=== PATIENT | female | born 1950 | race Caucasian/White ===

== ENCOUNTER 2021-04-03 20:48 | Emergency (ER) | payer MEDICARE, OTHER ==
[2021-04-03] MEDS ORDERED: Sodium Chloride 0.9% 10 ML Syringe FLUSH PRN (20:51)
--- NOTE | 2021-04-03 21:24 | CR ---
Chest: Frontal view of the chest was obtained. Comparison: No prior chest imaging is available. Heart is mildly enlarged. Tortuous thoracic aorta is seen. Lungs are clear with no acute parenchymal change. Slight degenerative change is scattered within the spine with mild scoliosis. Impression: 1. Findings as noted above. 2. Nothing acute is seen. Diagnostic code #2
--- NOTE | 2021-04-03 21:34 | CT ---
Head CT Technique: Multiple axial sections through the brain were obtained. Intravenous contrast was not utilized. Reconstructed coronal and sagittal images were obtained. Comparison: No prior intracranial imaging is available. Findings: Ventricles along with basal cisterns and sulci over the convexities are mildly prominent. No abnormal parenchymal densities are seen. No evidence of intracranial hemorrhage is seen. No midline shift or mass-effect is seen. Slight diminished density is noted within the area of the basilio most likely representing artifact from the underlying bony structures. Bone window settings were reviewed which show nothing acute within the visualized paranasal sinuses and mastoid sinuses. Atherosclerotic calcification is seen within the vertebral and carotid siphon. No acute calvarial abnormality is appreciated. Impression: 1. Mild senescent change as noted above. 2. Nothing acute is appreciated on noncontrast head CT exam. Diagnostic code #2
--- NOTE | 2021-04-03 22:47 | EDM.PDOC ---
ED HPI GENERAL MEDICAL PROBLEM - General Chief Complaint: Neuro Symptoms/Deficits Stated Complaint: POSSIBLE STROKE ALERT Time Seen by Provider: 04/03/21 20:50 Source of Information: Reports: Patient, Family History Limitations: Reports: No Limitations - History of Present Illness INITIAL COMMENTS - FREE TEXT/NARRATIVE: The patient presents with a headache and shortness of breath. She was upstairs changing her shirt when she developed pressure in her neck and pain to the back of her head. This has happened before and she saw her doctor Dr Rhodes and she did a complete work up. She gets results tomorrow. The patient also has had some shortness of breath recently. She has a history of atrial fibrillation and she is on eliquis. She has no swelling or pain in her legs. She has no fever, chills, cough, chest pain, abdominal pain, nausea, vomiting, numbness or weakness. Onset: Gradual Duration: Minutes: Location: Reports: Head Quality: Reports: Ache Severity: Moderate Improves with: Reports: None Worsens with: Reports: None Associated Symptoms: Reports: Headaches, Shortness of Breath. Denies: Chest Pain, Cough, Fever/Chills, Nausea/Vomiting Head Pain Score (Numeric/FACES): 3 - Related Data Allergies Allergy/AdvReac Type Severity Reaction Status Date / Time No Known Allergies Allergy Verified 04/03/21 20:58 Past Medical History Cardiovascular History: Reports: Afib, Hypertension, [place], SOB on Exertion - Past Surgical History Cardiovascular Surgical History: Reports: Coronary Artery Stent Social & Family History - Tobacco Use Tobacco Use Status *Q: Never Tobacco User ED ROS GENERAL - Review of Systems Review Of Systems: See Below Constitutional: Reports: No Symptoms HEENT: Reports: No Symptoms Respiratory: Reports: Shortness of Breath Cardiovascular: Reports: No Symptoms Endocrine: Reports: No Symptoms GI/Abdominal: Reports: No Symptoms : Reports: No Symptoms Musculoskeletal: Reports: No Symptoms Neurological: Reports: Headache ED EXAM, NEURO - Physical Exam Exam: See Below Exam Limited By: No Limitations General Appearance: Alert, No Apparent Distress Ears: Normal External Exam Nose: Normal Inspection Head Exam: Atraumatic, Normocephalic Neck: Normal Inspection, Other (Small mass to the left neck) Respiratory/Chest: No Respiratory Distress, Lungs Clear, Normal Breath Sounds Cardiovascular: Regular Rate, Rhythm, No Edema, No Murmur GI/Abdominal: Soft, Non-Tender, No Organomegaly, No Mass Neurological: Alert, No Motor/Sensory Deficits, Oriented x 3 #1 Interpretation EKG Date: 04/03/21 Time: 20:54 Rhythm: A-Fib Rate (Beats/Min): 117 Gordon: LAD-Left Gordon Deviation P-Wave: Absent QRS: RBBB ST-T: Normal QT: Normal Course - Vital Signs Last Recorded V/S: Last Vital Signs Temp 98.2 F 04/03/21 20:52 Pulse 111 H 04/03/21 20:52 Resp 18 04/03/21 20:52 BP 150/102 H 04/03/21 20:52 Pulse Ox 95 04/03/21 20:52 - Orders/Labs/Meds Orders: Active Orders 24 hr Category Date Time Status Cardiac Monitoring [RC] . DIRECTED Care 04/03/21 20:51 Active EKG Documentation Completion [RC] STAT Care 04/03/21 20:52 Active Peripheral IV Care [RC] . DIRECTED Care 04/03/21 20:52 Active Sodium Chloride 0.9% [Saline Flush] Med 04/03/21 20:51 Active 10 ml FLUSH ASDIRECTED PRN Peripheral IV Insertion Adult [OM.PC] Stat Oth 04/03/21 20:51 Ordered Medication Orders Sodium Chloride (Sodium Chloride 0.9% 10 Ml Syringe) 10 ml FLUSH ASDIRECTED PRN PRN Reason: Keep Vein Open Last Admin: 04/03/21 20:55 Dose: 10 ml Documented by: SANDRA Labs: Laboratory Tests 04/03/21 04/03/21 04/03/21 Range/Units 20:52 20:52 20:52 WBC 10.38 H (3.98-10.04) K/mm3 RBC 4.25 (3.98-5.22) M/mm3 Hgb 12.8 (11.2-15.7) gm/dl Hct 39.2 (34.1-44.9) % MCV 92.2 (79.4-94.8) fl MCH 30.1 (25.6-32.2) pg MCHC 32.7 (32.2-35.5) g/dl RDW Std Deviation 44.4 (36.4-46.3) fL Plt Count 279 (182-369) K/mm3 MPV 10.4 (9.4-12.3) fl Neut % (Auto) 53.5 (34.0-71.1) % Lymph % (Auto) 34.2 (19.3-51.7) % Kin[place] % (Auto) 8.9 (4.7-12.5) % Eos % (Auto) 2.7 (0.7-5.8) Baso % (Auto) 0.5 (0.1-1.2) % Neut # (Auto) 5.56 (1.56-6.13) K/mm3 Lymph # (Auto) 3.55 (1.18-3.74) K/mm3 [place] # (Auto) 0.92 H (0.24-0.36) K/mm3 Eos # (Auto) 0.28 (0.04-0.36) K/mm3 Baso # (Auto) 0.05 (0.01-0.08) K/mm3 Manual Slide Review Normal smear D-Dimer, Quantitative 1.57 H (0.19-0.50) mg/L Sodium 135 L (136-145) mEq/L Potassium 4.0 (3.5-5.1) mEq/L Chloride 99 (98-107) mEq/L Carbon Dioxide 26 (21-32) mEq/L Anion Gap 14.0 (5-15) BUN 22 H (7-18) mg/dL Creatinine 1.3 H (0.55-1.02) mg/dL Est Cr Clr Drug Dosing 28.92 mL/min Estimated GFR (MDRD) 40 (>60) mL/min BUN/Creatinine Ratio 16.9 (14-18) Glucose 110 H (70-99) mg/dL POC Glucose (70-99) mg/dL Calcium 8.9 (8.5-10.1) mg/dL Total Bilirubin 0.5 (0.2-1.0) mg/dL AST 26 (15-37) U/L ALT 25 (14-59) U/L Alkaline Phosphatase 60 (46-116) U/L Troponin I < 0.017 (0.00-0.056) ng/mL NT-Pro-B Natriuret Pep (0-125) pg/mL Total Protein 7.4 (6.4-8.2) g/dl Albumin 3.7 (3.4-5.0) g/dl Globulin 3.7 gm/dL Albumin/Globulin Ratio 1.0 (1-2) 04/03/21 04/03/21 Range/Units 20:52 20:54 WBC (3.98-10.04) K/mm3 RBC (3.98-5.22) M/mm3 Hgb (11.2-15.7) gm/dl Hct (34.1-44.9) % MCV (79.4-94.8) fl MCH (25.6-32.2) pg MCHC (32.2-35.5) g/dl RDW Std Deviation (36.4-46.3) fL Plt Count (182-369) K/mm3 MPV (9.4-12.3) fl Neut % (Auto) (34.0-71.1) % Lymph % (Auto) (19.3-51.7) % Kin[place] % (Auto) (4.7-12.5) % Eos % (Auto) (0.7-5.8) Baso % (Auto) (0.1-1.2) % Neut # (Auto) (1.56-6.13) K/mm3 Lymph # (Auto) (1.18-3.74) K/mm3 [place] # (Auto) (0.24-0.36) K/mm3 Eos # (Auto) (0.04-0.36) K/mm3 Baso # (Auto) (0.01-0.08) K/mm3 Manual Slide Review D-Dimer, Quantitative (0.19-0.50) mg/L Sodium (136-145) mEq/L Potassium (3.5-5.1) mEq/L Chloride (98-107) mEq/L Carbon Dioxide (21-32) mEq/L Anion Gap (5-15) BUN (7-18) mg/dL Creatinine (0.55-1.02) mg/dL Est Cr Clr Drug Dosing mL/min Estimated GFR (MDRD) (>60) mL/min BUN/Creatinine Ratio (14-18) Glucose (70-99) mg/dL POC Glucose 113 H (70-99) mg/dL Calcium (8.5-10.1) mg/dL Total Bilirubin (0.2-1.0) mg/dL AST (15-37) U/L ALT (14-59) U/L Alkaline Phosphatase (46-116) U/L Troponin I (0.00-0.056) ng/mL NT-Pro-B Natriuret Pep 2775 H (0-125) pg/mL Total Protein (6.4-8.2) g/dl Albumin (3.4-5.0) g/dl Globulin gm/dL Albumin/Globulin Ratio (1-2) Meds: Medications Generic Name Dose Route Start Last Admin Trade Name Freq PRN Reason Stop Dose Admin Sodium Chloride 10 ml 04/03/21 20:51 04/03/21 20:55 Sodium Chloride 0.9% 10 Ml Syringe FLUSH 10 ml ASDIRECTED PRN Administration Keep Vein Open - Re-Assessments/Exams Free Text/Narrative Re-Assessment/Exam: 04/03/21 22:48 A stroke alert was called. I came into the room right away. The patient had no weakness. Her last time known well was 15 minutes before arrival. I ordered an IV saline lock, EKG, CXR, CT of her head and labs. Her EKG shows atrial fib rillation with RBBB and nothing acute. Her CXR shows nothing acute is seen. The CT of her head shows mild senescent change. Nothing acute is appreciated on noncontrast head CT exam. Her WBC was slightly elevated at 10.38. Her D-dimer was elevated at 1.57. Her Na was elevated at 135. Her creatinine is elevated at 1.3. Her glucose is 110. Her troponin is negative. Her BNP is elevated at 2775. She has no swelling in her legs. She is on eliquis. I do not think she has a PE. I do not think a PE study is needed at this time. She has a follow up appointment with Dr Rhodes in the morning. I will discharge her home. She does feel better. Departure - Departure Time of Disposition: 22:55 Disposition: Home, Self-Care 01 Condition: Good Clinical Impression: Shortness of breath Headache Qualifiers: Headache type: other headache syndrome Qualified Code(s): G44.89 - Other headache syndrome - Discharge Information *PRESCRIPTION DRUG MONITORING PROGRAM REVIEWED*: Not Applicable *COPY OF PRESCRIPTION DRUG MONITORING REPORT IN PATIENT AURELIANO: Not Applicable Referrals: Elicia Rhodes MD [Primary Care Provider] - 1 Day Additional Instructions: Take your medications as prescribed. Follow up with Dr Rhodes tomorrow. Please return if you are worse. Sepsis Event Note (ED) - Evaluation Sepsis Screening Result: No Definite Risk - Focused Exam Vital Signs: Vital Signs Temp Pulse Resp BP Pulse Ox 04/03/21 20:52 98.2 F 111 H 18 150/102 H 95 - My Orders Last 24 Hours: My Active Orders 04/03/21 20:51 Cardiac Monitoring [RC] . DIRECTED Sodium Chloride 0.9% [Saline Flush] 10 ml FLUSH ASDIRECTED PRN Peripheral IV Insertion Adult [OM.PC] Stat 04/03/21 20:52 EKG Documentation Completion [RC] STAT Peripheral IV Care [RC] . DIRECTED - Assessment/Plan Last 24 Hours: My Active Orders 04/03/21 20:51 Cardiac Monitoring [RC] . DIRECTED Sodium Chloride 0.9% [Saline Flush] 10 ml FLUSH ASDIRECTED PRN Peripheral IV Insertion Adult [OM.PC] Stat 04/03/21 20:52 EKG Documentation Completion [RC] STAT Peripheral IV Care [RC] . DIRECTED
== END 2021-04-03 23:00 | disposition home or self-care (01) ==
LOC: JD.ED 20:48
DX: G44.89 Other headache syndrome (principal); R06.02 Shortness of breath; I48.91 Unspecified atrial fibrillation; I10 Essential (primary) hypertension; I25.2 Old myocardial infarction; Z95.5 Presence of coronary angioplasty implant and graft
CPT/HCPCS: 36415; 70450; 70450-26; 71045; 71045-26; 80053; 82947; 83880; 84484; 85025; 85379; 93005; 99285-25

== ENCOUNTER 2021-06-25 21:07 | Emergency (ER) | payer MEDICARE, OTHER ==
[2021-06-25] MEDS ORDERED: Sodium Chloride 0.9% 10 ML Syringe FLUSH PRN (21:25)
[2021-06-25] MEDS ORDERED: Ondansetron 4 MG/2 ML SDV IVPUSH ONE (21:25)
[2021-06-25] MEDS ORDERED: Sodium Chloride 0.9% 1,000 ML IV SCH (21:30)
[2021-06-25] MEDS ORDERED: Alum Hydrox/Mag Hydrox/Simeth 30 ML, Lidocaine 2% 15 ML PO ONE ×2 (21:36)
--- NOTE | 2021-06-25 21:42 | EDM.PDOC ---
<Zenobia Barkley V - Last Filed: 06/25/21 22:56> ED HPI GENERAL MEDICAL PROBLEM - General Chief Complaint: Abdominal Pain Stated Complaint: [facility] Time Seen by Provider: 06/25/21 21:25 Source of Information: Reports: Patient, Family (daughters), RN Notes Reviewed History Limitations: Reports: No Limitations - History of Present Illness INITIAL COMMENTS - FREE TEXT/NARRATIVE: Patient is a 70-year-old female who presents to the ER by [facility], for the evaluation of feeling generally unwell. Patient notes that she has a history of spastic colitis. States that for the last 2 weeks she has been having some GI issues, but today it became pretty painful. States that she is still able to have bowel movements, and has had no diarrhea, or any sort of urinary discomfort. She feels generally bloated, with lots of pressure in her midline abdomen. She is complaining of some burning in her epigastrium. She does have a history of GERD as well. Also has a history of A. fib. States that she tries to take a deep breath in, and just cannot catch a deep breath. Patient's not had any fevers or chills, cough, or any sort of nausea or vomiting. Primary care provider is Dr. Rhodes. Treatments EMBEDDED SOFTWARE TEST ENGINEER: Reports: Other (see below) Other Treatments EMBEDDED SOFTWARE TEST ENGINEER: iv per ambulance Upper Abdomen Pain Score (Numeric/FACES): 8 - Related Data Allergies Allergy/AdvReac Type Severity Reaction Status Date / Time No Known Allergies Allergy Verified 04/03/21 20:58 Home Meds: Home Meds Hydrocodone/Acetaminophen [HYDROcodone-Acetaminophen 5-325 MG] 1 each PO QID PRN #10 tab 06/26/21 [Rx] Ondansetron [Zofran ODT] 4 mg PO Q6H PRN #10 tab.dis 06/26/21 [Rx] Past Medical History Cardiovascular History: Reports: Afib, Hypertension, MS, SOB on Exertion, Stents (2 in LAD) Gastrointestinal History: Reports: Other (See Below) (states hx/ of spastic colitis) - Past Surgical History Cardiovascular Surgical History: Reports: Coronary Artery Stent (x 2 in LAD) Social & Family History - Tobacco Use Tobacco Use Status *Q: Former Tobacco User Used Tobacco, but Quit: Yes Month/Year Tobacco Last Used: 6 yrs - Recreational Drug Use Recreational Drug Use: No ED ROS GENERAL - Review of Systems Review Of Systems: Comprehensive ROS is negative, except as noted in HPI. ED EXAM, GI/ABD - Physical Exam Exam: See Below Exam Limited By: No Limitations General Appearance: Alert, WD/WN, No Apparent Distress Eyes: Bilateral: Normal Appearance Respiratory/Chest: No Respiratory Distress, Lungs Clear, Normal Breath Sounds, No Accessory Muscle Use, Chest Non-Tender Cardiovascular: Normal Peripheral Pulses, Regular Rate, Rhythm, No Edema GI/Abdominal Exam: Normal Bowel Sounds, Soft, No Distention, No Mass, Tender (over epigastrium mainly) Extremities: Normal Inspection, Normal Capillary Refill Neurological: Alert, Oriented, Normal Cognition, No Motor/Sensory Deficits Psychiatric: Normal Affect, Normal Mood Skin Exam: Warm, Dry, Intact, Normal Color, No Rash #1 Interpretation EKG Date: 06/25/21 Time: 21:41 Rhythm: A-Fib Rate (Beats/Min): 108 P-Wave: Present QRS: LBBB ST-T: Normal QT: Normal Comparison: NA - No Prior EKG EKG Interpretation Comments: No obvious ischemia or acute ST changes noted, reviewed by myself and Dr. Scott. Course - Re-Assessments/Exams Free Text/Narrative Re-Assessment/Exam: 06/25/21 21:41 Patient presents to the ER for the evaluation of her abdominal discomfort. We will go ahead and get a EKG due to her history of A. fib, we will get basic labs, also CT of her abdomen pelvis with IV contrast only, and give her a GI cocktail and some Zofran for ongoing management. 06/25/21 22:56 The patient's CBC has resulted, along with her coagulation studies and everything is fairly unremarkable for the most part. Metabolic panel still pending, along with the patient CT. She did get some relief from the GI cocktail, will order 40 of Protonix to see if this helps further help her reflux/burning sensation in her stomach. I did discuss the case with Dr. Scott, as it is nearing the end of my shift and he will gladly take over care of this patient at this time. Departure - Departure Disposition: Home, Self-Care 01 Clinical Impression: Cholecystitis - Discharge Information Instructions: Gallbladder Eating Plan, Cholecystitis, [id number] Referrals: Elicia Rhodes MD [Primary Care Provider] - Forms: ED Department Discharge Additional Instructions: Low-fat diet return to ER if increased pain, vomiting or fever. Follow-up with PCP for recheck and possible surgical referral. <Sasha Scott - Last Filed: 06/26/21 01:32> Course - Vital Signs Text/Narrative:: Patient CT scan shows that he has circumferential gallbladder wall thickening with a common bile duct measuring 1 cm. No gallstones were appreciated. Patient's lipase was normal and her LFTs are only mildly elevated. Her pain is well controlled at this point is only mild in intensity. Patient has no fever or vomiting. Ultrasound of her gallbladder shows that her gallbladder wall is thickened up to 7 mm in the common bile duct is 5.4 mm. No gallstones are seen. There is no sonographic Toussaint sign. Since patient's pain is well controlled and her clinical and ultrasound findings are improved I am discharging her home at this time with a prescription for some nausea and pain medicine instructions for low-fat diet with small meals only. She is to follow-up with her PCP for a surgical referral so if her symptoms were to return she would have a surgeon to take care of her at that time. Last Recorded V/S: Last Vital Signs Temp 96.2 F L 06/25/21 21:27 Pulse 120 H 06/25/21 21:27 Resp 17 06/25/21 21:27 BP 123/86 06/25/21 21:27 Pulse Ox 93 L 06/25/21 21:27 - Orders/Labs/Meds Orders: Active Orders 24 hr Category Date Time Status Peripheral IV Care [RC] . DIRECTED Care 06/25/21 21:26 Active Abdomen Ltd [US] Stat Exams 06/26/21 23:44 Taken Abdomen Pelvis w Cont [CT] Stat Exams 06/25/21 21:25 Taken Sodium Chloride 0.9% [Normal Saline] 1,000 ml Med 06/25/21 21:30 Active IV ASDIRECTED Sodium Chloride 0.9% [Saline Flush] Med 06/25/21 21:25 Active 10 ml FLUSH ASDIRECTED PRN Peripheral IV Insertion Adult [OM.PC] Stat Oth 06/25/21 21:25 Ordered Medication Orders Sodium Chloride (Normal Saline) 1,000 mls @ 999 mls/hr IV ASDIRECTED [facility] Last Admin: 06/25/21 22:09 Dose: 999 mls/hr Documented by: JENNIFER Sodium Chloride (Sodium Chloride 0.9% 10 Ml Syringe) 10 ml FLUSH ASDIRECTED PRN PRN Reason: Keep Vein Open Last Admin: 06/25/21 22:09 Dose: 10 ml Documented by: JENNIFER Labs: Laboratory Tests 06/25/21 06/25/21 06/25/21 Range/Units 22:13 22:13 22:13 WBC 8.51 (3.98-10.04) K/mm3 RBC 4.20 (3.98-5.22) M/mm3 Hgb 12.5 (11.2-15.7) gm/dl Hct 38.6 (34.1-44.9) % MCV 91.9 (79.4-94.8) fl MCH 29.8 (25.6-32.2) pg MCHC 32.4 (32.2-35.5) g/dl RDW Std Deviation 47.0 H (36.4-46.3) fL Plt Count 232 (182-369) K/mm3 MPV 10.5 (9.4-12.3) fl Neut % (Auto) 66.1 (34.0-71.1) % Lymph % (Auto) 21.0 (19.3-51.7) % [place] % (Auto) 8.9 (4.7-12.5) % Eos % (Auto) 3.2 (0.7-5.8) Baso % (Auto) 0.6 (0.1-1.2) % Neut # (Auto) 5.62 (1.56-6.13) K/mm3 Lymph # (Auto) 1.79 (1.18-3.74) K/mm3 Nobles # (Auto) 0.76 H (0.24-0.36) K/mm3 Eos # (Auto) 0.27 (0.04-0.36) K/mm3 Baso # (Auto) 0.05 (0.01-0.08) K/mm3 PT (9.7-12.0) SECONDS INR APTT (21.7-31.4) SECONDS Sodium 134 L (136-145) mEq/L Potassium 4.4 (3.5-5.1) mEq/L Chloride 101 (98-107) mEq/L Carbon Dioxide 24 (21-32) mEq/L Anion Gap 13.4 (5-15) BUN 23 H (7-18) mg/dL Creatinine 1.1 H (0.55-1.02) mg/dL Est Cr Clr Drug Dosing 35.91 mL/min Estimated GFR (MDRD) 49 (>60) mL/min BUN/Creatinine Ratio 20.9 H (14-18) Glucose 112 H (70-99) mg/dL Calcium 8.8 (8.5-10.1) mg/dL Total Bilirubin 0.5 (0.2-1.0) mg/dL AST 76 H (15-37) U/L ALT 112 H (14-59) U/L Alkaline Phosphatase 98 (46-116) U/L Troponin I < 0.017 (0.00-0.056) ng/mL C-Reactive Protein <0.2 (<1.0) mg/dL NT-Pro-B Natriuret Pep (0-125) pg/mL Total Protein 7.0 (6.4-8.2) g/dl Albumin 3.4 (3.4-5.0) g/dl Globulin 3.6 gm/dL Albumin/Globulin Ratio 0.9 L (1-2) Lipase 183 (73-393) U/L Urine Color (Yellow) Urine Appearance (Clear) Urine pH (5.0-8.0) Ur Specific [place] (1.005-1.030) Urine Protein (Negative) Urine Glucose (UA) (Negative) Urine Ketones (Negative) Urine Occult Blood (Negative) Urine Nitrite (Negative) Urine Bilirubin (Negative) Urine Urobilinogen (0.2-1.0) Ur Leukocyte Esterase (Negative) U Hyaline Cast (Auto) (0-5) /lpf Urine RBC (0-5) /hpf Urine WBC (0-5) /hpf Ur Squamous Epith Cells (0-5) /hpf Urine Bacteria (FEW) /hpf Urine Mucus (FEW) /hpf 06/25/21 06/25/21 06/25/21 Range/Units 22:13 22:13 23:59 WBC (3.98-10.04) K/mm3 RBC (3.98-5.22) M/mm3 Hgb (11.2-15.7) gm/dl Hct (34.1-44.9) % MCV (79.4-94.8) fl MCH (25.6-32.2) pg MCHC (32.2-35.5) g/dl RDW Std Deviation (36.4-46.3) fL Plt Count (182-369) K/mm3 MPV (9.4-12.3) fl Neut % (Auto) (34.0-71.1) % Lymph % (Auto) (19.3-51.7) % Nobles % (Auto) (4.7-12.5) % Eos % (Auto) (0.7-5.8) Baso % (Auto) (0.1-1.2) % Neut # (Auto) (1.56-6.13) K/mm3 Lymph # (Auto) (1.18-3.74) K/mm3 [place]les # (Auto) (0.24-0.36) K/mm3 Eos # (Auto) (0.04-0.36) K/mm3 Baso # (Auto) (0.01-0.08) K/mm3 PT 11.4 (9.7-12.0) SECONDS INR 1.03 APTT 26.9 (21.7-31.4) SECONDS Sodium (136-145) mEq/L Potassium (3.5-5.1) mEq/L Chloride (98-107) mEq/L Carbon Dioxide (21-32) mEq/L Anion Gap (5-15) BUN (7-18) mg/dL Creatinine (0.55-1.02) mg/dL Est Cr Clr Drug Dosing mL/min Estimated GFR (MDRD) (>60) mL/min BUN/Creatinine Ratio (14-18) Glucose (70-99) mg/dL Calcium (8.5-10.1) mg/dL Total Bilirubin (0.2-1.0) mg/dL AST (15-37) U/L ALT (14-59) U/L Alkaline Phosphatase (46-116) U/L Troponin I (0.00-0.056) ng/mL C-Reactive Protein (<1.0) mg/dL NT-Pro-B Natriuret Pep 4687 H (0-125) pg/mL Total Protein (6.4-8.2) g/dl Albumin (3.4-5.0) g/dl Globulin gm/dL Albumin/Globulin Ratio (1-2) Lipase (73-393) U/L Urine Color Yellow (Yellow) Urine Appearance Clear (Clear) Urine pH 6.0 (5.0-8.0) Ur Specific [place] 1.010 (1.005-1.030) Urine Protein Negative (Negative) Urine Glucose (UA) Negative (Negative) Urine Ketones Negative (Negative) Urine Occult Blood Trace-intact H (Negative) Urine Nitrite Negative (Negative) Urine Bilirubin Negative (Negative) Urine Urobilinogen 0.2 (0.2-1.0) Ur Leukocyte Esterase 1+ H (Negative) U Hyaline Cast (Auto) 0-5 (0-5) /lpf Urine RBC 0-5 (0-5) /hpf Urine WBC 0-5 (0-5) /hpf Ur Squamous Epith Cells 0-5 (0-5) /hpf Urine Bacteria Rare (FEW) /hpf Urine Mucus Rare (FEW) /hpf Meds: Medications Generic Name Dose Route Start Last Admin Trade Name Germain PRN Reason Stop Dose Admin Sodium Chloride 1,000 mls @ 999 mls/hr 06/25/21 21:30 06/25/21 22:09 Normal Saline IV 999 mls/hr ASDIRECTED MALU Administration Sodium Chloride 10 ml 06/25/21 21:25 06/25/21 22:09 Sodium Chloride 0.9% 10 Ml Syringe FLUSH 10 ml ASDIRECTED PRN Administration Keep Vein Open Discontinued Medications Generic Name Dose Route Start Last Admin Trade Name Germain PRN Reason Stop Dose Admin Al Hydroxide/Mg Hydroxide 30 0 ml 06/25/21 21:36 06/25/21 22:08 ml/ Lidocaine HCl 15 ml PO 06/25/21 21:37 45 ml ONETIME ONE Administration Ondansetron HCl 4 mg 06/25/21 21:25 06/25/21 22:09 Ondansetron 4 Mg/2 Ml Sdv IVPUSH 06/25/21 21:26 4 mg ONETIME ONE Administration Pantoprazole Sodium 40 mg 06/25/21 22:57 06/25/21 23:16 Pantoprazole 40 Mg Vial IVPUSH 06/25/21 22:58 40 mg ONETIME ONE Administration Departure - Departure Time of Disposition: 01:28 Condition: Good Sepsis Event Note (ED) - Focused Exam Vital Signs: Vital Signs Temp Pulse Resp BP Pulse Ox 06/25/21 21:27 96.2 F L 120 H 17 123/86 93 L - My Orders Last 24 Hours: My Active Orders 06/26/21 23:44 Abdomen Ltd [US] Stat - Assessment/Plan Last 24 Hours: My Active Orders 06/26/21 23:44 Abdomen Ltd [US] Stat
[2021-06-25] MEDS ORDERED: Pantoprazole 40 MG Vial IVPUSH ONE (22:57)
--- NOTE | 2021-06-26 07:27 | US ---
Limited abdominal ultrasound: Multiple real-time images of the right upper abdomen were obtained. Comparison: Prior chest CT performed on 06/25/21. Liver shows no focal abnormality. There is gallbladder wall edema being seen. No shadowing gallstones are noted. No biliary duct dilatation is seen. Right kidney shows no hydronephrosis. Right kidney has a length of 10.4 cm. Proximal aorta measures 2.8 cm. Pancreas shows no discrete abnormality. Inferior vena cava is patent. Main portal vein shows normal hepatopedal flow. Impression: 1. Diffuse gallbladder wall edema. No shadowing gallstones are seen. No biliary duct dilatation is seen. Please exclude any symptoms of acalculus cholecystitis. 2. No other acute abnormality is seen. Diagnostic code #3 I agree with preliminary report from [facility], finalized on 06/26/21, 2:04 AM CDT, code 1
--- NOTE | 2021-06-26 07:35 | CT ---
CT abdomen and pelvis Technique: Multiple axial sections were obtained from above the dome of the diaphragm inferiorly through the pubic symphysis. Intravenous contrast was utilized. No oral contrast has been given. Delayed images were also obtained through the abdomen and pelvis. Reconstructed coronal and sagittal images were obtained. Comparison: No prior abdominal imaging is available. Findings: Minimal left-sided pleural effusion is seen as well as mild right-sided pleural effusion. Slight atelectasis is also present. Heart is mildly enlarged with atherosclerotic change partially visualized within the coronary arteries. Liver contains no focal abnormality. Thickening of the gallbladder wall is seen. No definite shadowing cholelithiasis is seen. No biliary duct dilatation is seen. Kidneys show symmetric contrast enhancement. Very small low density findings are seen within the kidneys which are too minimal to measure by Hounsfield unit measurements but are statistically due to cysts. Largest cyst is noted within the upper left kidney measuring 1.7 cm. Delayed images show contrast within the distal ureters and within the bladder. Adrenal glands show no nodule. Pancreas is within normal limits. Abdominal aorta shows slight aneurysmal dilatation within its mid aspect measuring 2.6 cm. Distal aorta measures 2.9 cm. Atherosclerotic calcification is seen within the aorta as well as within the iliac vessels. No retroperitoneal adenopathy or mesenteric abnormalities are seen. Appendix is not definitely visualized. No pelvic mass or adenopathy is seen. No free fluid or inflammatory change is seen. Bone window settings were reviewed which show scattered degenerative change within the spine most prominent at L3-4 with vacuum phenomena. Mild spondylolisthesis seen at L4-5. Diffuse degenerative apophyseal change also noted within the lumbar spine. Impression: 1. Small right-sided pleural effusion and minimal left-sided pleural effusion. 2. Questionable wall thickening within the gallbladder. 3. Other nonacute findings as noted above. Diagnostic code #3 I agree with preliminary report from [facility], finalized on 06/26/21, 12:28 AM CDT, code 1
== END 2021-06-26 01:46 | disposition home or self-care (01) ==
LOC: JD.ED 21:07
DX: K81.9 Cholecystitis, unspecified (principal); I44.7 Left bundle-branch block, unspecified; I48.91 Unspecified atrial fibrillation; I10 Essential (primary) hypertension; I25.2 Old myocardial infarction; Z87.891 Personal history of nicotine dependence; R06.02 Shortness of breath
CPT/HCPCS: 36415; 74177; 76705; 80053; 81001; 83690; 83880; 84484; 85025; 85610; 85730; 86140; 93005; 96374; 96375; 99284; A9270; C9113; J2405; J7030; 93010

== ENCOUNTER 2021-07-03 09:56 | Emergency (ER) | payer MEDICARE, OTHER ==
[2021-07-03] MEDS ORDERED: Sodium Chloride 0.9% 10 ML Syringe FLUSH PRN (10:14)
[2021-07-03] MEDS ORDERED: Diltiazem 50 MG/10 ML SDV IVPUSH ONE (10:16)
[2021-07-03] MEDS ORDERED: Diltiazem 100 MG in Sodium Chloride 0.9% 100 ML IV SCH (10:30)
[2021-07-03] MEDS ORDERED: HYDROmorphone 0.5 MG/0.5 ML Syringe IVPUSH ONE (10:48)
--- NOTE | 2021-07-03 11:22 | CR ---
Chest: Portable view of the chest was obtained. Comparison: Prior chest x-ray 04/03/21. Heart is enlarged. Slight tortuosity of the thoracic aorta is seen. Pulmonary vessels may be minimally congested. Lungs otherwise are clear. Slight scoliosis is noted within the spine with mild scattered degenerative change also noted within the spine. Impression: 1. Cardiomegaly with questionable minimal pulmonary vascular congestion. 2. Other findings as noted above which are chronic. Diagnostic code #3
--- NOTE | 2021-07-03 12:00 | EDM.PDOC ---
ED HPI GENERAL MEDICAL PROBLEM - General Chief Complaint: Cardiovascular Problem Stated Complaint: ABNORMAL EKG SENT FROM [facility] Time Seen by Provider: 07/03/21 10:04 Source of Information: Reports: Patient, Family, Provider History Limitations: Reports: No Limitations - History of Present Illness INITIAL COMMENTS - FREE TEXT/NARRATIVE: The patient presents from Dr Rhodes's office for atrial fibrillation with RVR. The patient was there for a physical for cataract surgery. She has a history of Atrial fibrillation on eliquis. She was found to have atrial fibrillation wi th RVR. She was sent over for further management. She admits to being short of breath over the past week and had some chest tightness. She also has some pain in the right upper abdomen. She was seen here 8 days ago for RUQ abdominal pain and nausea. On CT there were concerns her gallbladder wall was thickened. She had an US done that night and it showed a thickened gallbladder wall without c holelithiasis. Onset: Gradual Duration: Week(s): Location: Reports: Chest, Abdomen Quality: Reports: Ache Severity: Moderate Improves with: Reports: None Worsens with: Reports: None Associated Symptoms: Denies: Chest Pain, Cough, Fever/Chills, Headaches, Nausea/Vomiting, Shortness of Breath - Related Data Allergies Allergy/AdvReac Type Severity Reaction Status Date / Time No Known Allergies Allergy Verified 07/03/21 10:11 Home Meds: Home Meds Acetaminophen 650 mg PO Q4H PRN 07/03/21 [History] Apixaban [Eliquis] 5 mg PO BID 07/03/21 [History] Calcium Carbonate/Vitamin D3 [Calcium 600-Vit D3 200 Tablet] 1 tab PO DAILY 07/03/21 [History] Clopidogrel Bisulfate [Plavix] 75 mg PO DAILY 07/03/21 [History] Furosemide 20 mg PO DAILY 07/03/21 [History] Loratadine 10 mg PO DAILY 07/03/21 [History] Multivit-Min/Iron/Folic/Lutein [Centrum Silver Women Tablet] 1 tab PO DAILY 07/03/21 [History] Pantoprazole 40 mg PO DAILY 07/03/21 [History] Potassium Gluconate 595 mg PO DAILY 07/03/21 [History] Quinapril [Accupril] 20 mg PO DAILY 07/03/21 [History] Sennosides [Senna] 8.6 mg PO BEDTIME PRN 07/03/21 [History] atenoloL [Atenolol] 50 mg PO DAILY 07/03/21 [History] atorvaSTATin Calcium [Atorvastatin Calcium] 80 mg PO DAILY 07/03/21 [History] Past Medical History Cardiovascular History: Reports: Afib, Hypertension, [place], SOB on Exertion, Stents Respiratory History: Reports: None Gastrointestinal History: Reports: Cholelithiasis - Past Surgical History Cardiovascular Surgical History: Reports: Coronary Artery Stent Social & Family History - Tobacco Use Tobacco Use Status *Q: Never Tobacco User ED ROS GENERAL - Review of Systems Review Of Systems: See Below Constitutional: Reports: No Symptoms HEENT: Reports: No Symptoms Respiratory: Reports: Shortness of Breath Cardiovascular: Reports: Chest Pain Endocrine: Reports: No Symptoms GI/Abdominal: Reports: Abdominal Pain, Nausea. Denies: Diarrhea, Vomiting : Reports: No Symptoms Musculoskeletal: Reports: No Symptoms ED EXAM, GENERAL - Physical Exam Exam: See Below Exam Limited By: No Limitations General Appearance: Alert, No Apparent Distress Ears: Normal External Exam Nose: Normal Inspection Head: Atraumatic, Normocephalic Neck: Normal Inspection Respiratory/Chest: No Respiratory Distress, Lungs Clear, Normal Breath Sounds Cardiovascular: No Edema, No Murmur, Tachycardia, Irregularly Irregular GI/Abdominal: Soft, Non-Tender, No Organomegaly, No Mass Back Exam: Normal Inspection Extremities: Normal Inspection #1 Interpretation EKG Date: 07/03/21 Time: 10:03 Rhythm: A-Fib Rate (Beats/Min): 124 Fackler: LAD-Left Fackler Deviation P-Wave: Absent QRS: Wide ST-T: Normal QT: Normal Course - Vital Signs Last Recorded V/S: Last Vital Signs Temp 97.2 F 07/03/21 10:08 Pulse 90 07/03/21 11:22 Resp 18 07/03/21 11:22 BP 98/61 07/03/21 11:22 Pulse Ox 94 L 07/03/21 11:22 - Orders/Labs/Meds Orders: Active Orders 24 hr Category Date Time Status Cardiac Monitoring [RC] . DIRECTED Care 07/03/21 10:14 Active Oxygen Therapy [RC] PRN Care 07/03/21 10:14 Active Peripheral IV Care [RC] . DIRECTED Care 07/03/21 10:15 Active Diltiazem [Cardizem] 100 mg Med 07/03/21 10:30 Active Sodium Chloride 0.9% [Normal Saline] 100 ml IV TITRATE Sodium Chloride 0.9% [Saline Flush] Med 07/03/21 10:14 Active 10 ml FLUSH ASDIRECTED PRN Peripheral IV Insertion Adult [OM.PC] Stat Oth 07/03/21 10:14 Ordered Medication Orders Diltiazem HCl 100 mg/ Sodium (Chloride) 100 mls @ 10 mls/hr IV TITRATE MALU; Protocol Last Titration: 07/03/21 12:09 Dose: 5 mg/hr, 5 mls/hr Documented by: Admin: 07/03/21 10:38 Dose: 10 mg/hr, 10 mls/hr Documented by: MEAGHAN Sodium Chloride (Sodium Chloride 0.9% 10 Ml Syringe) 10 ml FLUSH ASDIRECTED PRN PRN Reason: Keep Vein Open Last Admin: 07/03/21 10:38 Dose: 10 ml Documented by: MEAGHAN Labs: Laboratory Tests 07/03/21 07/03/21 07/03/21 Range/Units 10:20 10:20 10:20 WBC 9.59 (3.98-10.04) K/mm3 RBC 4.26 (3.98-5.22) M/mm3 Hgb 12.5 (11.2-15.7) gm/dl Hct 38.3 (34.1-44.9) % MCV 89.9 (79.4-94.8) fl MCH 29.3 (25.6-32.2) pg MCHC 32.6 (32.2-35.5) g/dl RDW Std Deviation 44.9 (36.4-46.3) fL Plt Count 274 (182-369) K/mm3 MPV 10.3 (9.4-12.3) fl Neut % (Auto) 78.4 H (34.0-71.1) % Lymph % (Auto) 11.8 L (19.3-51.7) % [place] % (Auto) 8.9 (4.7-12.5) % Eos % (Auto) 0.5 L (0.7-5.8) Baso % (Auto) 0.2 (0.1-1.2) % Neut # (Auto) 7.52 H (1.56-6.13) K/mm3 Lymph # (Auto) 1.13 L (1.18-3.74) K/mm3 [place] # (Auto) 0.85 H (0.24-0.36) K/mm3 Eos # (Auto) 0.05 (0.04-0.36) K/mm3 Baso # (Auto) 0.02 (0.01-0.08) K/mm3 Sodium 131 L (136-145) mEq/L Potassium 4.3 (3.5-5.1) mEq/L Chloride 95 L (98-107) mEq/L Carbon Dioxide 23 (21-32) mEq/L Anion Gap 17.3 H (5-15) BUN 25 H (7-18) mg/dL Creatinine 1.1 H (0.55-1.02) mg/dL Est Cr Clr Drug Dosing TNP Estimated GFR (MDRD) 49 (>60) mL/min BUN/Creatinine Ratio 22.7 H (14-18) Glucose 115 H (70-99) mg/dL Calcium 8.9 (8.5-10.1) mg/dL Magnesium 1.9 (1.8-2.4) mg/dL Total Bilirubin 0.9 (0.2-1.0) mg/dL AST 64 H (15-37) U/L ALT 116 H (14-59) U/L Alkaline Phosphatase 102 (46-116) U/L Troponin I < 0.017 (0.00-0.056) ng/mL NT-Pro-B Natriuret Pep 6120 H (0-125) pg/mL Total Protein 7.1 (6.4-8.2) g/dl Albumin 3.5 (3.4-5.0) g/dl Globulin 3.6 gm/dL Albumin/Globulin Ratio 1.0 (1-2) SARS-CoV-2 RNA ([place]) (NEGATIVE) 07/03/21 Range/Units 10:55 WBC (3.98-10.04) K/mm3 RBC (3.98-5.22) M/mm3 Hgb (11.2-15.7) gm/dl Hct (34.1-44.9) % MCV (79.4-94.8) fl MCH (25.6-32.2) pg MCHC (32.2-35.5) g/dl RDW Std Deviation (36.4-46.3) fL Plt Count (182-369) K/mm3 MPV (9.4-12.3) fl Neut % (Auto) (34.0-71.1) % Lymph % (Auto) (19.3-51.7) % [place] % (Auto) (4.7-12.5) % Eos % (Auto) (0.7-5.8) Baso % (Auto) (0.1-1.2) % Neut # (Auto) (1.56-6.13) K/mm3 Lymph # (Auto) (1.18-3.74) K/mm3 [place] # (Auto) (0.24-0.36) K/mm3 Eos # (Auto) (0.04-0.36) K/mm3 Baso # (Auto) (0.01-0.08) K/mm3 Sodium (136-145) mEq/L Potassium (3.5-5.1) mEq/L Chloride (98-107) mEq/L Carbon Dioxide (21-32) mEq/L Anion Gap (5-15) BUN (7-18) mg/dL Creatinine (0.55-1.02) mg/dL Est Cr Clr Drug Dosing Estimated GFR (MDRD) (>60) mL/min BUN/Creatinine Ratio (14-18) Glucose (70-99) mg/dL Calcium (8.5-10.1) mg/dL Magnesium (1.8-2.4) mg/dL Total Bilirubin (0.2-1.0) mg/dL AST (15-37) U/L ALT (14-59) U/L Alkaline Phosphatase (46-116) U/L Troponin I (0.00-0.056) ng/mL NT-Pro-B Natriuret Pep (0-125) pg/mL Total Protein (6.4-8.2) g/dl Albumin (3.4-5.0) g/dl Globulin gm/dL Albumin/Globulin Ratio (1-2) SARS-CoV-2 RNA ([place]) Negative (NEGATIVE) Meds: Medications Generic Name Dose Route Start Last Admin Trade Name Freq PRN Reason Stop Dose Admin Diltiazem HCl 100 mg/ Sodium 100 mls @ 10 mls/hr 07/03/21 10:30 07/03/21 12:09 Chloride IV 5 mg/hr TITRATE MALU 5 mls/hr Titration Protocol 10 MG/HR Sodium Chloride 10 ml 07/03/21 10:14 07/03/21 10:38 Sodium Chloride 0.9% 10 Ml Syringe FLUSH 10 ml ASDIRECTED PRN Administration Keep Vein Open Discontinued Medications Generic Name Dose Route Start Last Admin Trade Name Germain PRN Reason Stop Dose Admin Diltiazem HCl 20 mg 07/03/21 10:16 07/03/21 10:37 Diltiazem 50 Mg/10 Ml Sdv IVPUSH 07/03/21 10:17 20 mg ONETIME ONE Administration Hydromorphone HCl 0.25 mg 07/03/21 10:48 07/03/21 11:00 Hydromorphone 0.5 Mg/0.5 Ml Syringe IVPUSH 07/03/21 10:49 0.25 mg ONETIME ONE Administration Ceftriaxone Sodium 1 gm/ 100 mls @ 200 mls/hr 07/03/21 12:44 07/03/21 13:12 Sodium Chloride IV 07/03/21 13:13 200 mls/hr ONETIME ONE Administration - Re-Assessments/Exams Free Text/Narrative Re-Assessment/Exam: 07/03/21 14:27 I ordered an IV saline lock, cardizem bolus 20mg IV followed by a drip at 10mg/hr, EKG, CXR and labs. Her EKG shows atrial fibrillation with no acute changes. Her CXR shows cardiomegaly with questionable minimal pulmonary vascular congestion. Other findings that are chronic. Her CBC is negative. Her creatinine is elevated at 1.2. Her troponin is negative. Her CRP is elevated at 2.8. I looked at her CT and US and it showed dilated gallbladder wall. She has cholecystitis and still has symptoms. Her WBC oddly enough is normal. I ordered rocephin 1 gram IV. Her heart rate came down and I was able to wean her off of the cardizem drip. I feel she needs to be admitted. We have no beds here. I called [facility] in [place] and talked with the general surgeon Dr Owens and Dr Ch and they accepted the patient. I will send her by ambulance. They need us to wait for a bed to open up. They will call us back. Departure - Departure Time of Disposition: 15:00 Disposition: DC/Tfer to Acute Hospital 02 Reason for Transfer *Q: Other Condition: Fair Clinical Impression: Atrial fibrillation with RVR, Cholecystitis Referrals: Elicia Rhodes MD [Primary Care Provider] - Forms: ED Department Discharge Sepsis Event Note (ED) - Evaluation Sepsis Screening Result: No Definite Risk - Focused Exam Vital Signs: Vital Signs Temp Pulse Resp BP Pulse Ox 07/03/21 11:22 90 18 98/61 94 L 07/03/21 10:08 97.2 F 135 H 16 102/86 97 - My Orders Last 24 Hours: My Active Orders 07/03/21 10:14 Cardiac Monitoring [RC] . DIRECTED Oxygen Therapy [RC] PRN Sodium Chloride 0.9% [Saline Flush] 10 ml FLUSH ASDIRECTED PRN Peripheral IV Insertion Adult [OM.PC] Stat 07/03/21 10:15 Peripheral IV Care [RC] . DIRECTED 07/03/21 10:30 Diltiazem [Cardizem] 100 mg Sodium Chloride 0.9% [Normal Saline] 100 ml IV TITRATE - Assessment/Plan Last 24 Hours: My Active Orders 07/03/21 10:14 Cardiac Monitoring [RC] . DIRECTED Oxygen Therapy [RC] PRN Sodium Chloride 0.9% [Saline Flush] 10 ml FLUSH ASDIRECTED PRN Peripheral IV Insertion Adult [OM.PC] Stat 07/03/21 10:15 Peripheral IV Care [RC] . DIRECTED 07/03/21 10:30 Diltiazem [Cardizem] 100 mg Sodium Chloride 0.9% [Normal Saline] 100 ml IV TITRATE
[2021-07-03] MEDS ORDERED: cefTRIAXone 1 GM in Sodium Chloride 0.9% 100 ML IV ONE (12:44)
== END 2021-07-03 17:40 ==
LOC: JD.ED 09:56
DX: I48.91 Unspecified atrial fibrillation (principal); K81.9 Cholecystitis, unspecified; I10 Essential (primary) hypertension; I25.2 Old myocardial infarction; Z95.5 Presence of coronary angioplasty implant and graft; Z79.01 Long term (current) use of anticoagulants; Z79.899 Other long term (current) drug therapy; Z20.822 Contact with and (suspected) exposure to COVID-19; Z79.02 Long term (current) use of antithrombotics/antiplatelets
CPT/HCPCS: 36415; 71045; 80053; 83735; 83880; 84484; 85025; 93005; 96365; 96366; 96368; 96375; 99285; J0696; J1170; J3490; U0002

== ENCOUNTER 2024-03-16 10:03 | Emergency (ER) | payer MEDICARE, OTHER ==
[2024-03-16 10:39] LABS: BASOPHILS PERCENT AUTO 0.5 % (0.0-1.0); EOSINOPHILS ABSOLUTE AUTO 0.2 K/mm3 (0.0-0.4); EOSINOPHILS PERCENT AUTO 2.1 % (0.0-6.0); HEMATOCRIT 30.2 % (37.0-47.0); HEMOGLOBIN 9.6 gm/dl (12.0-16.0); IMMATURE GRAN ABSOLUTE AUTO 0.08 K/mm3 (0.00-0.05); IMMATURE GRAN PERCENT AUTO 0.9 % (0.0-0.4); LYMPHOCYTES ABSOLUTE AUTO 1.6 K/mm3 (1.0-4.8); LYMPHOCYTES PERCENT AUTO 19.1 % (24.0-44.0); MEAN CORPUSCULAR HEMOGLOBIN 29.8 pg (28.0-32.0); MEAN CORPUSCULAR HGB CONC 31.8 g/dl (32.0-36.0); MEAN CORPUSCULAR VOLUME 93.8 fl (83.0-99.0); MEAN PLATELET VOLUME 9.8 fl (9.4-12.3); MONOCYTES ABSOLUTE AUTO 1.1 K/mm3 (0.0-0.8); NEUTROPHILS ABSOLUTE AUTO 5.5 K/mm3 (1.8-7.7); NEUTROPHILS PERCENT AUTO 64.4 % (41.0-71.0); PLATELET COUNT,PLT 421 K/mm3 (150-400); RED BLOOD CELL COUNT 3.22 M/mm3 (4.10-5.30); WHITE BLOOD CELL COUNT,WBC 8.54 K/mm3 (3.9-11.3)
[2024-03-16] MEDS: Lactated Ringers 1,000 ML IV SCH (10:44)
[2024-03-16] MEDS: Sodium Chloride 0.9% 1,000 ML IV SCH (10:47)
[2024-03-16] MEDS: Sodium Chloride 0.9% 10 ML Syringe FLUSH PRN (10:48)
[2024-03-16 10:58] LABS: A/G RATIO 0.6 (1-2); ALANINE AMINOTRANSFERASE,ALT 75 U/L (14-59); ALKALINE PHOSPHATASE 111 U/L (46-116); ANION GAP 15.5 (5-15); ASPARTATE AMNIOTRANSFERASE,AST 64 U/L (15-37); BILIRUBIN TOTAL 0.5 mg/dL (0.2-1.0); BLOOD UREA NITROGEN,BUN 57 mg/dL (7-18); BUN/CREATININE RATIO 43.8 (14-18); CALCIUM 9.4 mg/dL (8.5-10.1); CARBON DIOXIDE,CO2 23 mEq/L (21-32); CHLORIDE,CL 99 mEq/L (98-107); CREATININE 1.3 mg/dL (0.55-1.02); EST CRCL DRUG DOSING (CG) 29.08 mL/min; ESTIMATED GFR 43 mL/min (>60); GLUCOSE RANDOM 127 mg/dL (70-99); LIPASE 205 U/L (16-77); POTASSIUM,K 4.5 mEq/L (3.5-5.1); PROTEIN TOTAL,TP 7.4 g/dl (6.4-8.2); SODIUM,NA 133 mEq/L (136-145); TROPONIN I HIGH SENSITIVITY 46 pg/mL (<=51)
[2024-03-16 11:22] LABS: ALBUMIN 2.9 g/dl (3.4-5.0)
[2024-03-16 11:23] LABS: TSH < 0.007 uIU/mL (0.358-3.74)
[2024-03-16] MEDS: LORazepam 0.5 MG Tab PO ONE (11:47)
[2024-03-16 11:57] LABS: APPEARANCE,URINE CLEAR (Clear); BILIRUBIN,URINE NEGATIVE (Negative); COLOR,URINE YELLOW (Yellow); GLUCOSE,URINE NEGATIVE (Negative); KETONES,URINE NEGATIVE (Negative); LEUKOCYTE ESTERASE,URINE 1+ (Negative); NITRITE,URINE NEGATIVE (Negative); OCCULT BLOOD,URINE TRACE-INTACT (Negative); PROTEIN,URINE TRACE (Negative); UROBILINOGEN,URINE 0.2 (0.2-1.0)
[2024-03-16 12:11] LABS: RBC,URINE 0-5 /hpf (0-5); SQUAMOUS EPITHELIAL CELLS,UR NOT SEEN /hpf (0-5)
[2024-03-16 12:12] LABS: BACTERIA,URINE MANY /hpf (FEW); MUCUS,URINE NOT SEEN /hpf (FEW); WBC CLUMPS,URINE OCCASIONAL /hpf (NOT SEEN)
[2024-03-16] MEDS: Doxycycline Monohydrate 100 MG Cap PO ONE (13:07)
== END 2024-03-16 13:04 | disposition home or self-care (01) ==
LOC: JD.ED 10:03
DX: R53.1 Weakness (principal); E86.0 Dehydration; N39.0 Urinary tract infection, site not specified; I10 Essential (primary) hypertension; I25.2 Old myocardial infarction; I48.91 Unspecified atrial fibrillation; Z87.891 Personal history of nicotine dependence; Z95.5 Presence of coronary angioplasty implant and graft; Z79.01 Long term (current) use of anticoagulants; Z79.899 Other long term (current) drug therapy
CPT/HCPCS: 36415; 70450; 71045; 72170; 80053; 81001; 83605; 83690; 83880; 84443; 84484; 85025; 87086; 96360; 96361; 99285; A9270; C1758; J3490; J7030; J7120; 87088; 87186

== ENCOUNTER 2024-03-16 19:09 | Inpatient (IN) | payer MEDICARE, OTHER ==
[2024-03-16 19:31] LABS: BASOPHILS PERCENT AUTO 0.6 % (0.0-1.0); EOSINOPHILS ABSOLUTE AUTO 0.2 K/mm3 (0.0-0.4); EOSINOPHILS PERCENT AUTO 2.9 % (0.0-6.0); HEMOGLOBIN 8.7 gm/dl (12.0-16.0); IMMATURE GRAN ABSOLUTE AUTO 0.05 K/mm3 (0.00-0.05); IMMATURE GRAN PERCENT AUTO 0.7 % (0.0-0.4); LYMPHOCYTES ABSOLUTE AUTO 1.7 K/mm3 (1.0-4.8); LYMPHOCYTES PERCENT AUTO 23.6 % (24.0-44.0); MEAN CORPUSCULAR HEMOGLOBIN 29.9 pg (28.0-32.0); MEAN CORPUSCULAR HGB CONC 32.2 g/dl (32.0-36.0); MEAN CORPUSCULAR VOLUME 92.8 fl (83.0-99.0); MEAN PLATELET VOLUME 9.6 fl (9.4-12.3); MONOCYTES ABSOLUTE AUTO 0.9 K/mm3 (0.0-0.8); MONOCYTES PERCENT AUTO 12.2 % (0.0-8.0); NEUTROPHILS ABSOLUTE AUTO 4.3 K/mm3 (1.8-7.7); PLATELET COUNT,PLT 367 K/mm3 (150-400); RED BLOOD CELL COUNT 2.91 M/mm3 (4.10-5.30); WHITE BLOOD CELL COUNT,WBC 7.16 K/mm3 (3.9-11.3)
[2024-03-16] MEDS: Sodium Chloride 0.9% 1,000 ML IV ONE (19:41)
[2024-03-16] MEDS: Sodium Chloride 0.9% 10 ML Syringe FLUSH PRN (19:42)
[2024-03-16 19:55] LABS: A/G RATIO 0.6 (1-2); ALBUMIN 2.5 g/dl (3.4-5.0); ANION GAP 14.6 (5-15); BILIRUBIN TOTAL 0.4 mg/dL (0.2-1.0); BUN/CREATININE RATIO 46.9 (14-18); CALCIUM 8.7 mg/dL (8.5-10.1); CREATININE 1.3 mg/dL (0.55-1.02); EST CRCL DRUG DOSING (CG) 30.48 mL/min; MAGNESIUM 1.7 mg/dL (1.8-2.4); POTASSIUM,K 3.6 mEq/L (3.5-5.1); PROTEIN TOTAL,TP 6.6 g/dl (6.4-8.2)
[2024-03-16] MEDS ORDERED: Norepinephrine 4 MG in Dextrose 5% in Water 246 ML IV SCH (20:30)
[2024-03-16] MEDS: Sucralfate 1 GM Tab PO ONE (20:31)
[2024-03-16] MEDS: Pantoprazole 40 MG Vial IVPUSH ONE (20:31)
[2024-03-16] MEDS: Sodium Chloride 0.9% 1,000 ML IV SCH (21:05)
[2024-03-16] MEDS ORDERED: Sodium Chloride 0.9% 100 ML IV SCH (21:15)
[2024-03-16] MEDS: Iopamidol 755 Mg/ML 100 ML Bottle IVPUSH ONE (21:38)
[2024-03-16 23:21] LABS: APPEARANCE,URINE CLEAR (Clear); BILIRUBIN,URINE NEGATIVE (Negative); COLOR,URINE YELLOW (Yellow); GLUCOSE,URINE NEGATIVE (Negative); KETONES,URINE NEGATIVE (Negative); LEUKOCYTE ESTERASE,URINE 2+ (Negative); NITRITE,URINE NEGATIVE (Negative); OCCULT BLOOD,URINE 1+ (Negative); PROTEIN,URINE NEGATIVE (Negative); UROBILINOGEN,URINE 0.2 (0.2-1.0)
[2024-03-16 23:30] LABS: EPITHELIAL CELLS,URINE 0-5 /hpf (0-5); RBC,URINE 0-5 /hpf (0-5)
[2024-03-16 23:31] LABS: BACTERIA,URINE MANY /hpf (FEW); HYALINE CASTS,URINE 0-5 /lpf (0-5); MUCUS,URINE NOT SEEN /hpf (FEW)
[2024-03-16] MEDS: Sodium Chloride 0.9% 1,000 ML ONE (23:51)
[2024-03-17] MEDS: Methimazole 5 MG Tab PO ONE ×2 (00:07)
[2024-03-17] MEDS ORDERED: Ondansetron 4 MG/2 ML SDV IV PRN (07:44)
[2024-03-17] MEDS: Methimazole 5 MG Tab PO SCH (08:17)
[2024-03-17] MEDS ORDERED: Torsemide 20 MG Tab PO SCH (09:00)
[2024-03-17] MEDS ORDERED: Atenolol 25 MG Tab PO SCH (09:00)
[2024-03-17] MEDS: Apixaban 5 MG Tab PO SCH (10:56)
[2024-03-17] MEDS: Metoprolol Tartrate 25 MG Tab PO SCH (10:56)
[2024-03-17] MEDS: Pantoprazole 40 MG Tab.CR PO SCH (10:56)
[2024-03-17] MEDS: Clopidogrel 75 MG Tab PO SCH (10:56)
[2024-03-17] MEDS: cefTRIAXone 2 GM in Sodium Chloride 0.9% 100 ML IV SCH (13:12)
[2024-03-17] MEDS: Sodium Chloride 0.9% 1,000 ML IV SCH (14:31)
[2024-03-17] MEDS: Rosuvastatin 10 MG Tab PO SCH (21:16)
[2024-03-18 05:57] LABS: HEMATOCRIT 25.4 % (37.0-47.0); MEAN CORPUSCULAR HEMOGLOBIN 29.7 pg (28.0-32.0); MEAN CORPUSCULAR HGB CONC 31.5 g/dl (32.0-36.0); MEAN CORPUSCULAR VOLUME 94.4 fl (83.0-99.0); MEAN PLATELET VOLUME 9.9 fl (9.4-12.3); PLATELET COUNT,PLT 297 K/mm3 (150-400); RED BLOOD CELL COUNT 2.69 M/mm3 (4.10-5.30)
[2024-03-18 06:47] LABS: ANION GAP 14.6 (5-15); BUN/CREATININE RATIO 25.7 (14-18); CALCIUM 8.8 mg/dL (8.5-10.1); CREATININE 0.7 mg/dL (0.55-1.02); EST CRCL DRUG DOSING (CG) 54.01 mL/min; POTASSIUM,K 3.6 mEq/L (3.5-5.1)
[2024-03-18] MEDS: Acetaminophen 325 MG Tab PO PRN (22:51)
[2024-03-19 05:36] LABS: HEMATOCRIT 25.4 % (37.0-47.0); HEMOGLOBIN 8.1 gm/dl (12.0-16.0); MEAN CORPUSCULAR HEMOGLOBIN 29.7 pg (28.0-32.0); MEAN CORPUSCULAR HGB CONC 31.9 g/dl (32.0-36.0); MEAN PLATELET VOLUME 9.7 fl (9.4-12.3); PLATELET COUNT,PLT 273 K/mm3 (150-400); RED BLOOD CELL COUNT 2.73 M/mm3 (4.10-5.30); WHITE BLOOD CELL COUNT,WBC 5.52 K/mm3 (3.9-11.3)
[2024-03-19 06:10] LABS: ANION GAP 14.2 (5-15); BLOOD UREA NITROGEN,BUN 11 mg/dL (7-18); BUN/CREATININE RATIO 18.3 (14-18); CALCIUM 8.6 mg/dL (8.5-10.1); CARBON DIOXIDE,CO2 22 mEq/L (21-32); CHLORIDE,CL 108 mEq/L (98-107); CREATININE 0.6 mg/dL (0.55-1.02); EST CRCL DRUG DOSING (CG) 63.01 mL/min; ESTIMATED GFR 95 mL/min (>60); GLUCOSE RANDOM 94 mg/dL (70-99); POTASSIUM,K 3.2 mEq/L (3.5-5.1); SODIUM,NA 141 mEq/L (136-145)
[2024-03-19 06:15] LABS: TSH < 0.007 uIU/mL (0.358-3.74)
[2024-03-19] MEDS ORDERED: Acetaminophen/HYDROcodone 325-5 MG Tab PO PRN (17:15)
[2024-03-20 06:03] LABS: HEMATOCRIT 26.1 % (37.0-47.0); HEMOGLOBIN 8.3 gm/dl (12.0-16.0); MEAN CORPUSCULAR HEMOGLOBIN 29.6 pg (28.0-32.0); MEAN CORPUSCULAR HGB CONC 31.8 g/dl (32.0-36.0); MEAN CORPUSCULAR VOLUME 93.2 fl (83.0-99.0); MEAN PLATELET VOLUME 9.9 fl (9.4-12.3); PLATELET COUNT,PLT 292 K/mm3 (150-400); WHITE BLOOD CELL COUNT,WBC 6.53 K/mm3 (3.9-11.3)
[2024-03-20 06:08] LABS: CALCIUM 8.6 mg/dL (8.5-10.1); CREATININE 0.6 mg/dL (0.55-1.02); EST CRCL DRUG DOSING (CG) 63.01 mL/min
[2024-03-20] MEDS: Potassium Chloride 20 MEQ Tab.ER PO ONE (15:34)
[2024-03-21 06:10] LABS: BASOPHILS PERCENT AUTO 0.4 % (0.0-1.0); EOSINOPHILS ABSOLUTE AUTO 0.5 K/mm3 (0.0-0.4); EOSINOPHILS PERCENT AUTO 6.5 % (0.0-6.0); HEMATOCRIT 26.2 % (37.0-47.0); HEMOGLOBIN 8.2 gm/dl (12.0-16.0); IMMATURE GRAN ABSOLUTE AUTO 0.05 K/mm3 (0.00-0.05); IMMATURE GRAN PERCENT AUTO 0.7 % (0.0-0.4); LYMPHOCYTES ABSOLUTE AUTO 1.2 K/mm3 (1.0-4.8); LYMPHOCYTES PERCENT AUTO 17.1 % (24.0-44.0); MEAN CORPUSCULAR HEMOGLOBIN 28.9 pg (28.0-32.0); MEAN CORPUSCULAR HGB CONC 31.3 g/dl (32.0-36.0); MEAN CORPUSCULAR VOLUME 92.3 fl (83.0-99.0); MEAN PLATELET VOLUME 9.8 fl (9.4-12.3); MONOCYTES PERCENT AUTO 13.2 % (0.0-8.0); NEUTROPHILS ABSOLUTE AUTO 4.5 K/mm3 (1.8-7.7); NEUTROPHILS PERCENT AUTO 62.1 % (41.0-71.0); PLATELET COUNT,PLT 273 K/mm3 (150-400); RED BLOOD CELL COUNT 2.84 M/mm3 (4.10-5.30); WHITE BLOOD CELL COUNT,WBC 7.19 K/mm3 (3.9-11.3)
[2024-03-21 06:34] LABS: A/G RATIO 0.6 (1-2); ALBUMIN 2.1 g/dl (3.4-5.0); BILIRUBIN TOTAL 0.3 mg/dL (0.2-1.0); CALCIUM 8.2 mg/dL (8.5-10.1); CREATININE 0.5 mg/dL (0.55-1.02); EST CRCL DRUG DOSING (CG) 75.62 mL/min; PROTEIN TOTAL,TP 5.7 g/dl (6.4-8.2)
[2024-03-21] MEDS: Dexamethasone 4 MG Tab PO SCH (08:40)
[2024-03-21 17:42] LABS: THYROGLOBULIN AB <0.9 IU/mL (0.0-4.0); THYROID PEROX AB <0.3 IU/mL (0.0-9.0)
[2024-03-22 06:21] LABS: HEMOGLOBIN 8.3 gm/dl (12.0-16.0); IMMATURE GRAN ABSOLUTE AUTO 0.05 K/mm3 (0.00-0.05); IMMATURE GRAN PERCENT AUTO 0.6 % (0.0-0.4); LYMPHOCYTES ABSOLUTE AUTO 0.9 K/mm3 (1.0-4.8); LYMPHOCYTES PERCENT AUTO 10.5 % (24.0-44.0); MEAN CORPUSCULAR HEMOGLOBIN 29.9 pg (28.0-32.0); MEAN CORPUSCULAR HGB CONC 31.9 g/dl (32.0-36.0); MEAN CORPUSCULAR VOLUME 93.5 fl (83.0-99.0); MEAN PLATELET VOLUME 10.1 fl (9.4-12.3); MONOCYTES ABSOLUTE AUTO 0.7 K/mm3 (0.0-0.8); MONOCYTES PERCENT AUTO 7.9 % (0.0-8.0); NEUTROPHILS ABSOLUTE AUTO 6.6 K/mm3 (1.8-7.7); PLATELET COUNT,PLT 292 K/mm3 (150-400); RED BLOOD CELL COUNT 2.78 M/mm3 (4.10-5.30); WHITE BLOOD CELL COUNT,WBC 8.19 K/mm3 (3.9-11.3)
[2024-03-22 06:36] LABS: A/G RATIO 0.7 (1-2); ALBUMIN 2.4 g/dl (3.4-5.0); ANION GAP 14.5 (5-15); BILIRUBIN TOTAL 0.3 mg/dL (0.2-1.0); BUN/CREATININE RATIO 23.8 (14-18); CALCIUM 8.5 mg/dL (8.5-10.1); CREATININE 0.8 mg/dL (0.55-1.02); EST CRCL DRUG DOSING (CG) 47.26 mL/min; MAGNESIUM 1.6 mg/dL (1.8-2.4); POTASSIUM,K 3.5 mEq/L (3.5-5.1); PROTEIN TOTAL,TP 6.1 g/dl (6.4-8.2)
[2024-03-23 05:19] LABS: BASOPHILS PERCENT AUTO 0.1 % (0.0-1.0); HEMATOCRIT 26.8 % (37.0-47.0); HEMOGLOBIN 8.5 gm/dl (12.0-16.0); IMMATURE GRAN ABSOLUTE AUTO 0.08 K/mm3 (0.00-0.05); IMMATURE GRAN PERCENT AUTO 0.9 % (0.0-0.4); LYMPHOCYTES ABSOLUTE AUTO 1.1 K/mm3 (1.0-4.8); LYMPHOCYTES PERCENT AUTO 12.4 % (24.0-44.0); MEAN CORPUSCULAR HEMOGLOBIN 29.2 pg (28.0-32.0); MEAN CORPUSCULAR HGB CONC 31.7 g/dl (32.0-36.0); MEAN CORPUSCULAR VOLUME 92.1 fl (83.0-99.0); MEAN PLATELET VOLUME 10.1 fl (9.4-12.3); MONOCYTES ABSOLUTE AUTO 0.5 K/mm3 (0.0-0.8); MONOCYTES PERCENT AUTO 5.6 % (0.0-8.0); NEUTROPHILS ABSOLUTE AUTO 6.9 K/mm3 (1.8-7.7); PLATELET COUNT,PLT 303 K/mm3 (150-400); RED BLOOD CELL COUNT 2.91 M/mm3 (4.10-5.30); WHITE BLOOD CELL COUNT,WBC 8.57 K/mm3 (3.9-11.3)
[2024-03-23 05:29] LABS: A/G RATIO 0.7 (1-2); ALBUMIN 2.5 g/dl (3.4-5.0); ANION GAP 14.6 (5-15); BILIRUBIN TOTAL 0.3 mg/dL (0.2-1.0); CALCIUM 8.6 mg/dL (8.5-10.1); CREATININE 0.7 mg/dL (0.55-1.02); EST CRCL DRUG DOSING (CG) 54.01 mL/min; POTASSIUM,K 3.6 mEq/L (3.5-5.1); PROTEIN TOTAL,TP 6.2 g/dl (6.4-8.2); T4 FREE 2.55 ng/dL (0.76-1.46)
[2024-03-24 04:53] LABS: HEMATOCRIT 26.6 % (37.0-47.0); HEMOGLOBIN 8.4 gm/dl (12.0-16.0); IMMATURE GRAN ABSOLUTE AUTO 0.08 K/mm3 (0.00-0.05); IMMATURE GRAN PERCENT AUTO 0.8 % (0.0-0.4); LYMPHOCYTES ABSOLUTE AUTO 1.2 K/mm3 (1.0-4.8); LYMPHOCYTES PERCENT AUTO 12.3 % (24.0-44.0); MEAN CORPUSCULAR HEMOGLOBIN 29.5 pg (28.0-32.0); MEAN CORPUSCULAR HGB CONC 31.6 g/dl (32.0-36.0); MEAN CORPUSCULAR VOLUME 93.3 fl (83.0-99.0); MEAN PLATELET VOLUME 10.3 fl (9.4-12.3); MONOCYTES ABSOLUTE AUTO 0.7 K/mm3 (0.0-0.8); MONOCYTES PERCENT AUTO 7.7 % (0.0-8.0); NEUTROPHILS ABSOLUTE AUTO 7.7 K/mm3 (1.8-7.7); NEUTROPHILS PERCENT AUTO 79.2 % (41.0-71.0); PLATELET COUNT,PLT 301 K/mm3 (150-400); RED BLOOD CELL COUNT 2.85 M/mm3 (4.10-5.30); WHITE BLOOD CELL COUNT,WBC 9.67 K/mm3 (3.9-11.3)
[2024-03-24 05:01] LABS: A/G RATIO 0.7 (1-2); ALBUMIN 2.4 g/dl (3.4-5.0); ANION GAP 12.8 (5-15); BILIRUBIN TOTAL 0.3 mg/dL (0.2-1.0); BUN/CREATININE RATIO 38.3 (14-18); CALCIUM 8.6 mg/dL (8.5-10.1); CREATININE 0.6 mg/dL (0.55-1.02); EST CRCL DRUG DOSING (CG) 63.01 mL/min; POTASSIUM,K 3.8 mEq/L (3.5-5.1)
== END 2024-03-24 12:40 | disposition home or self-care (01) | DRG 643 ==
LOC: JD.ED 19:09 → JD.MS 03-17 06:38
PROVIDERS: ADMIT Internal Medicine; ATTEND Internal Medicine
DX: R53.1 Weakness (principal); N39.0 Urinary tract infection, site not specified; E05.91 Thyrotoxicosis, unspecified with thyrotoxic crisis or storm; G93.41 Metabolic encephalopathy; N30.00 Acute cystitis without hematuria; Z96.642 Presence of left artificial hip joint; I10 Essential (primary) hypertension; I25.10 Atherosclerotic heart disease of native coronary artery without angina pectoris; I95.9 Hypotension, unspecified; H54.7 Unspecified visual loss; I48.0 Paroxysmal atrial fibrillation; D64.9 Anemia, unspecified; E86.0 Dehydration; Z79.01 Long term (current) use of anticoagulants; Z79.899 Other long term (current) drug therapy; Z79.02 Long term (current) use of antithrombotics/antiplatelets; I25.2 Old myocardial infarction; Z95.5 Presence of coronary angioplasty implant and graft; Z87.81 Personal history of (healed) traumatic fracture; Z87.891 Personal history of nicotine dependence
CPT/HCPCS: 36415; 71045; 71045-26; 71275; 71275-26; 74177; 74177-26; 76536; 76536-26; 80048; 80053; 81001; 82728; 83540; 83605; 83690; 83735; 84439; 84443; 84481; 84484; 85025; 85027; 85379; 86376; 86800; 86850; 86900; 86901; 87086; 87088; 87186; 93005; 93010; 96361; 96374; 97110-GP; 97161-GP; 99231; 99232; 99239; 99285; 99285-25; A9270-GY; C9113; J0696; J3490; J7030; J8540; Q9967